=== PATIENT | female | born 1995 | race Hispanic/Latino ===

== ENCOUNTER 2019-01-08 00:09 | Inpatient (IN) | payer OTHER, SELFPAY ==
[2019-01-08 01:57] LABS: Add Manual Diff / Slide Review NO; Basophils Absolute Auto 0 /uL (0-100); Basophils Percent Auto 0.3 % (0-2); Eosinophils Absolute Auto 100 /uL (0-450); Eosinophils Percent Auto 0.6 % (2-4); Hematocrit 39.6 % (36-46); Hemoglobin 13.1 g/dL (12.0-16.0); Lymphocytes Absolute Auto 2800 /uL (1100-4500); Lymphocytes Percent Auto 24.9 % (25-40); Mean Corpuscular Hemoglobin 28.6 PG (26-34); Mean Corpuscular Volume 86.6 fL (80-100); Monocytes Absolute Auto 700 /uL (0-900); Monocytes Percent Auto 6.3 % (3-14); Neutrophils Absolute Auto 7500 /uL (1500-7000); Neutrophils Percent Auto 67.9 % (50-75); Platelet Count 239 X10^3/uL (150-400); Red Blood Cell Count 4.58 X10^6/uL (4.0-5.2); Red Cell Distribution Width 14.4 % (11.6-14.8); White Blood Cell Count 11.1 X10^3/uL (4.5-11.0)
--- NOTE | 2019-01-08 05:07 | PM.OBPRVD ---
Delivery date: 01/08/19 Intrapartal events: None Cervical ripening method: none Induction method: none Delivery monitor: external FHT Route of delivery: L&D Laceration Description: None Estimated blood loss (mL): 250 Anesthesia type: None Complications: Nurse controlled delivery Narrative: Mom is a G2 para 1 at 40 weeks gestational age with routine care. Patient was a transfer from [facility]. The to our facility about 4 weeks ago. Patient had routine follow-up and normal care. Patient presented to labor and delivery floor early this morning in active labor. heart tones were reassuring. Contractions were adequate and aggressive. The the patient through stage I of labor progressed rather rapidly. She got goes to complete patient wanted the epidural. She got up to use the bathroom. Patient had spontaneous rupture of membranes with clear fluid. She then got back into bed. And baby rapidly then began to transition through the canal. I which point I was called. On way way into the hospital patient delivered precipitously with nurse control. Baby had good the delivery of the head. I guess there was some mild shoulder dystocia. But this was relieved without any further problems. And baby delivered. Baby was doing fine and placed on mother's abdomen when I arrived. Baby was breast-feeding. Content. Placenta was delivered intact. Mom had a small tiny right-sided periurethral tear which was not in first-degree which was not repaired. Apgars reportedly 8 and 9. The mom and baby were doing well afterwards.
--- NOTE | 2019-01-08 05:11 | P.PCNOB_ITS ---
Delivery date: 01/08/19 Intrapartal events: None Cervical ripening method: none Induction method: none Delivery monitor: external FHT Route of delivery: L&D Laceration Description: None Estimated blood loss (mL): 250 Anesthesia type: None Complications: Nurse controlled delivery Narrative: Mom is a G2 para 1 at 40 weeks gestational age with routine care. [facility] transfer [facility] The to our facility about 4 weeks ago. Patient had routine follow-up and normal care. Patient presented to labor and delivery floor early this morning in active labor. heart tones were reassuring. Contractions were adequate and aggressive. The the patient through stage I of labor progressed rather rapidly. She got goes to complete patient wanted the epidural. She got up to use the bathroom. Patient had spontaneous rupture of membranes with clear fluid. She then got back into bed. And baby rapidly then began to transition through the canal. I which point I was called. On way way into the hospital patient delivered precipitously with nurse control. Baby had good the delivery of the head. I guess there was some mild shoulder dystocia. But this was relieved without any further problems. And baby delivered. Baby was doing fine and placed on mo ther's abdomen when I arrived. Baby was breast-feeding. Content. Placenta was delivered intact. Mom had a small tiny right-sided periurethral tear which was not in first-degree which was not repaired. Apgars reportedly 8 and 9. The mom and baby were doing well afterwards.
[2019-01-08] MEDS: IBUPROFEN 600 MG TABLET PO ×3 (08:51→21:20)
[2019-01-08] MEDS: PRENATAL VIT,CALC/IRON/FOLIC 1 TABLET 1 TAB PO (08:51)
[2019-01-08 10:53] VITALS: BP 116/74
[2019-01-09 06:24] LABS: Hematocrit 36.3 % (36-46); Hemoglobin 12.2 g/dL (12.0-16.0)
[2019-01-09] MEDS: IBUPROFEN 600 MG TABLET PO (07:52)
[2019-01-09] MEDS: PRENATAL VIT,CALC/IRON/FOLIC 1 TABLET 1 TAB PO (07:52)
--- NOTE | 2019-01-09 07:55 | P.DS_ITS ---
History of Present Illness Chief complaint: LABOR AND DELIVERY Discharge Providers Date of admission: 01/08/19 00:09 Consults: 01/08/19 01:01 Consult to Anesthesiology Urgent Comment: Consulting Provider: Cierra Savage Reason for consultation: Labor pain management 01/08/19 06:14 Consult to Sales Representative [employer] Routine Comment: Discharge provider: Monroe Santamaria MD Discharge Date: 01/09/19 Summary Discharge Diagnosis: G2 para 2 status post vaginal delivery Routine care Hospital Course: Patient was admitted to the hospital went on to spontaneously deliver vaginally male infant which was healthy. She had routine post care. Exam Narrative Exam Narrative: General: Alert no apparent distress. Affect is appropriate. Abhinav it is uncomfortable. HEENT: Neck is supple without lymphadenopathy pupils equal round and reactive. Cardio: S1-S2 regular rate and rhythm. Respiratory: Lungs clear to auscultation. Abdomen: Uterus firm. Incision clean dry and intact. Extremities: Normal deep tendon reflexes trace edema. Objective Labs Result Diagrams: 01/09/19 06:05 Labs: Laboratory Results - last 24 hr 01/08/19 01/09/19 01:10 06:05 Hgb 12.2 Hct 36.3 Antibody Screen Negative Discharge Plan Discharge Plan Patient Disposition: Home Discharge Med Rec/Prescriptions Prescriptions: New docusate sodium [Colace] 100 mg capsule 100 mg PO BID PRN (Reason: constipation) Qty: 10 RF: 0 Continued prenat.vits,refugio,ekt-roxb-sbyqt tablet 1 tab PO DAILY RF: 0 Discharge Data Attending Provider: Denisa Soriano Admit Date/Time: 01/08/19 00:09
[2019-01-09 08:41] VITALS: BP 127/88; PULSE 66; RESP 16; TEMP 37
== END 2019-01-09 11:10 | disposition home or self-care (01) | DRG 807 ==
PROVIDERS: Family Medicine; Admitting Provider Obstetrics & Gynecology; Visit Provider Obstetrics & Gynecology
DX: O66.0 Obstructed labor due to shoulder dystocia (principal); Z37.0 Single live birth; O70.0 First degree perineal laceration during delivery; Z3A.40 40 weeks gestation of pregnancy
CPT/HCPCS: 36415; 59050; 59410; 85014; 85018; 85025; 86850; 86900; 86901; G0379